=== PATIENT | female | born 1945 | race Caucasian/White ===

== ENCOUNTER 2023-03-18 19:22 | Inpatient (IN) | payer OTHER ==
[~2023-03-18] VITALS: Ht 152.4 cm; Wt 49.9 kg
[2023-03-18 20:03] VITALS: BP 138/51; PULSE 80; RESP 20; TEMP 97.3; O2SAT 99
[2023-03-18 21:43] LABS: BASOPHILS % (AUTO) 0.3 % (0.0-2.0); EOSINOPHILS % (AUTO) 0.1 % (0.0-4.0); HEMATOCRIT 26.7 % (36-48); HEMOGLOBIN 8.6 g/dL (12.0-16.0); LYMPHOCYTES # (AUTO) 1.7 K/uL (2.5-16.5); LYMPHOCYTES % (AUTO) 24.9 % (20.5-51.1); MEAN CORPUSCULAR HEMOGLOBIN 26 pg (27-31); MEAN CORPUSCULAR HGB CONC 32 g/dL (33-37); MEAN CORPUSCULAR VOLUME 81.3 fL (80-94); MONOCYTES # (AUTO) 0.7 K/uL (0.8-1.0); MONOCYTES % (AUTO) 10.8 % (1.7-9.3); NEUTROPHILS # (AUTO) 4.3 K/uL (1.8-7.7); NEUTROPHILS % (AUTO) 63.9 % (42.2-75.2); PLATELET COUNT (AUTO) 203 K/uL (140-450); RED BLOOD CELL COUNT(AUTO) 3.29 MIL/uL (4.20-5.40); RED CELL DISTRIBUTION WIDTH 17.2 % (11.6-13.7); WHITE BLOOD COUNT (AUTO) 6.7 K/uL (4.8-10.8)
[2023-03-18 22:01] LABS: ANION GAP 12.8 (8-16); CALCIUM 8.9 mg/dL (8.5-10.1); CARBON DIOXIDE 26.3 mmol/L (21-32); CHLORIDE 99 mmol/L (98-107); GLUCOSE 320 mg/dL (74-106); POTASSIUM 4.1 mmol/L (3.5-5.1); SODIUM SERUM 134 mmol/L (136-145); UREA NITROGEN, BLOOD 18 mg/dL (7-18)
[2023-03-18 22:03] LABS: ALBUMIN 2.3 g/dL (3.4-5.0); BILIRUBIN,DIRECT 0.1 mg/dL (0.0-0.3); TOTAL BILIRUBIN 0.4 mg/dL (0.0-1.0); TOTAL PROTEIN, SERUM 8.4 g/dL (6.4-8.2)
[2023-03-19 01:21] LABS: APPEARANCE,URINE CLEAR (CLEAR); BILIRUBIN,URINE NEGATIVE (NEGATIVE); BLOOD, URINE 2+ (NEGATIVE); COLOR,URINE YELLOW (YELLOW); LEUKOCYTE ESTERASE ,URINE 1+ (NEGATIVE); NITRITE, URINE NEGATIVE (NEGATIVE); PROTEIN,URINE 2+ (NEGATIVE); UGLUCOSE 3+ (NEGATIVE)
[2023-03-19 02:16] LABS: BACTERIA,URINE >30 (MANY) /HPF (None Seen); WBC,URINE TOO MANY TO COUNT /HPF (0-5)
[2023-03-19 02:17] LABS: MUCUS,URINE 2+ /LPF (None Seen); SQUAMOUS EPITHELIAL CELL,UR 0-3 (FEW) /LPF (0-3 (FEW))
[2023-03-19] MEDS ORDERED: cefTRIAXone 1,000 MG VIAL ONE (03:59)
[2023-03-19] MEDS ORDERED: MAG SULF 2000 MG/WATER PREMIX 50 ML IV PRN (05:40)
[2023-03-19] MEDS ORDERED: ZOLPIDEM 5 MG TAB PO PRN (05:40)
[2023-03-19] MEDS ORDERED: ACETAMINOPHEN 325 MG TAB PO PRN (05:40)
[2023-03-19] MEDS ORDERED: POTASSIUM CHLORIDE 10 MEQ TABER PO PRN (05:40)
[2023-03-19] MEDS ORDERED: KCL 20 MEQ IN 100 mL PREMIX 200 ML IV PRN (05:40)
[2023-03-19] MEDS ORDERED: ONDANSETRON 4 MG/2 ML VIAL IVP PRN (05:40)
[2023-03-19] MEDS ORDERED: MAGNESIUM OXIDE 400 MG TAB PO PRN (05:40)
[2023-03-19] MEDS ORDERED: NACL 0.9% 1,000 ML IV ONE (05:40)
[2023-03-19] MEDS ORDERED: HYDROcodone/APAP 5/325 MG 1 TAB TAB PO PRN (05:40)
[2023-03-19] MEDS: DOCUSATE SODIUM 100 MG GELCAP PO SCH (09:12)
[2023-03-19] MEDS: ENOXAPARIN 40 MG/0.4 ML SYR SUBQ SCH (09:20)
[2023-03-19] MEDS ORDERED: PIOG45TA67 PO (11:51)
[2023-03-19] MEDS ORDERED: SERT-434 PO (11:51)
[2023-03-19] MEDS ORDERED: ALOG25TA PO (11:51)
[2023-03-19] MEDS ORDERED: ASPI-1749 PO (11:51)
[2023-03-19] MEDS ORDERED: EZET10TA84 PO (11:51)
[2023-03-19] MEDS ORDERED: LANTUS SC (11:51)
[2023-03-19 20:25] VITALS: PULSE 69; RESP 18; O2SAT 95
[2023-03-19] MEDS ORDERED: DEXTROSE 50% 50 ML SYR IVP PRN (21:05)
[2023-03-20] VITALS: BP 117/42; PULSE 66; RESP 19; TEMP 97.8; O2SAT 94
[2023-03-20] MEDS ORDERED: cefTRIAXone 1,000 MG VIAL ONE (05:21)
[2023-03-20] MEDS: BLOOD GLUCOSE MONITORING 1 DEV DEV FS SCH ×3 (06:35→16:45)
[2023-03-20 06:51] LABS: BASOPHILS % (AUTO) 0.2 % (0.0-2.0); EOSINOPHILS % (AUTO) 0.5 % (0.0-4.0); HEMATOCRIT 22.7 % (36-48); HEMOGLOBIN 7.5 g/dL (12.0-16.0); LYMPHOCYTES # (AUTO) 2.4 K/uL (2.5-16.5); LYMPHOCYTES % (AUTO) 40.4 % (20.5-51.1); MEAN CORPUSCULAR HEMOGLOBIN 27 pg (27-31); MEAN CORPUSCULAR HGB CONC 33 g/dL (33-37); MEAN CORPUSCULAR VOLUME 81.1 fL (80-94); MONOCYTES # (AUTO) 0.6 K/uL (0.8-1.0); MONOCYTES % (AUTO) 9.3 % (1.7-9.3); NEUTROPHILS % (AUTO) 49.6 % (42.2-75.2); PLATELET COUNT (AUTO) 198 K/uL (140-450); RED BLOOD CELL COUNT(AUTO) 2.79 MIL/uL (4.20-5.40); RED CELL DISTRIBUTION WIDTH 17.5 % (11.6-13.7)
[2023-03-20 07:07] LABS: ALANINE AMINOTRANSFERASE 15 U/L (12-78); ALKALINE PHOSPHATASE 86 U/L (50-136); ANION GAP 11.5 (8-16); ASPARTATE AMINOTRANSFERASE 23 U/L (15-37); CALCIUM 8.9 mg/dL (8.5-10.1); CARBON DIOXIDE 28.7 mmol/L (21-32); CHLORIDE 106 mmol/L (98-107); CREATININE 0.8 mg/dL (0.6-1.3); GLUCOSE 143 mg/dL (74-106); POTASSIUM 3.2 mmol/L (3.5-5.1); SODIUM SERUM 143 mmol/L (136-145); TOTAL BILIRUBIN 0.3 mg/dL (0.0-1.0); TOTAL PROTEIN, SERUM 8.3 g/dL (6.4-8.2); UREA NITROGEN, BLOOD 10 mg/dL (7-18)
[2023-03-20 08:00] VITALS: BP 124/43; PULSE 62; RESP 18; TEMP 97.6; O2SAT 100
[2023-03-20] MEDS: DOCUSATE SODIUM 100 MG GELCAP PO SCH (09:35)
[2023-03-20] MEDS: ENOXAPARIN 40 MG/0.4 ML SYR SUBQ SCH (09:37)
[2023-03-20] MEDS: INSULIN LISPRO SLIDING SCALE 100 UNITS/ML VIAL SUBQ PRN ×2 (11:48→16:47)
[2023-03-20] MEDS ORDERED: FOAM DRESSING TP SCH (13:00)
[2023-03-20] MEDS ORDERED: FOAM DRESSING TP PRN (14:55)
[2023-03-20 16:00] VITALS: BP 131/50; PULSE 85; RESP 18; TEMP 98.2; O2SAT 97
[2023-03-20] MEDS ORDERED: AMOXICILLIN 500 MG CAP PO SCH (16:15)
[2023-03-20] MEDS ORDERED: AMOX500C25 PO (16:22)
[2023-03-20 17:40] VITALS: BP 131/50; PULSE 85; RESP 18; TEMP 98.2
[2023-03-21] MEDS ORDERED: GAUZE TP SCH (13:00)
== END 2023-03-20 18:16 | disposition home or self-care (01) | DRG 637 ==
LOC: MED 19:22 → MTU 03-19 05:46 → OBSVTOIN 03-20 14:45
PROVIDERS: ADMIT Hospitalist; ATTEND Hospitalist
DX: E11.65 Type 2 diabetes mellitus with hyperglycemia (principal); G93.41 Metabolic encephalopathy; N10 Acute pyelonephritis; E44.0 Moderate protein-calorie malnutrition; E87.1 Hypo-osmolality and hyponatremia; I69.351 Hemiplegia and hemiparesis following cerebral infarction affecting right dominant side; M48.56XA Collapsed vertebra, not elsewhere classified, lumbar region, initial encounter for fracture; N39.0 Urinary tract infection, site not specified; I10 Essential (primary) hypertension; E11.9 Type 2 diabetes mellitus without complications; D63.8 Anemia in other chronic diseases classified elsewhere; K76.0 Fatty (change of) liver, not elsewhere classified; E78.00 Pure hypercholesterolemia, unspecified; Z79.82 Long term (current) use of aspirin; Z79.899 Other long term (current) drug therapy; Z68.21 Body mass index [BMI] 21.0-21.9, adult
CPT/HCPCS: 36415; 70450; 80048; 80053; 80076; 81001; 82150; 82948; 83690; 83735; 85025; 86886; 86900; 86901; 87040; 87081; 87086; 96361; 96365; 97163-GP; 99285; G0378; J0696; J1650; J7060; Q9967